=== PATIENT | female | born 1935 | race Caucasian/White ===

== ENCOUNTER → 2016-03-27 | Outpatient (CLI) | payer MEDICARE, OTHER ==
[~2016-03-27] MED LIST: AMARYL2 MG PO; APRESOLINE PO; ASPIRIN ADULT L81 MG; ASPIRIN81 M1 PO; AVANDARYL 4 MG-1 TAB; AVANDARYL 4 MG-1 TAB PO; BACTRIM DS 8001 TA1 PO; CALCIUM + D 6001 TA1; CALCIUM + D 6001 TAB PO; CARVEDILOL3.125 MG PO; CILOXAN 5 ML5 M1 OT; CLOPIDOGREL75 MG PO; COLACE100 MG PO; CORBAN MAGNESI400 MG PO; COREG CR20 MG; COREG CR20 MG PO; COZAAR25 MG; COZAAR25 MG PO; Clopidogrel75 MG PO; DILTIAZEM 24HR300 MG PO; DILTIAZEM CD300 MG; DILTIAZEM CD300 MG PO; DILTIAZEM HCL300 MG PO; ECOTRIN ADULT L81 MG PO; ESIDREX,ORETIC,25 MG; ESIDREX,ORETIC,25 MG PO; FLEXERIL5 MG PO; FUROSEMIDE20 MG PO; GABAPENTIN100 M1 PO; GABAPENTIN100 MG PO; GLIMEPIRIDE1 MG PO; HYDR25T PO; K-TAB10 MEQ PO; KEFLEX250 MG PO; LOSARTAN POTASS50 M1 PO; MAGNESIUM OXID400 MG PO; METANX 2.8 MG-21 TA1; METANX 2.8 MG-21 TA1 PO; METFORMIN HCL500 MG; METFORMIN HCL500 MG PO; METFORMIN500 MG PO; MICRO K10 MEQ PO; MICRO-K10 MEQ PO; NEURONTIN100 MG PO; NORCO 325 MG-51 TAB PO; NORVASC10 MG PO; OCUVITE1 TA1 PO; OMEPRAZOLE20 MG PO; OMEPRAZOLE40 MG PO; PANTOPRAZOLE SO40 MG PO; PLAVIX75 M1 PO; PLAVIX75 MG PO; POTASSIUM CHLO10 ME1 PO; POTASSIUM20 MEQ; POTASSIUM20 MEQ PO; PREDNISONE10 MG PO; PRESERVISION1 SGL PO; PRILOSEC40 M1 PO; PRILOSEC40 MG PO; PROTONIX40 MG PO; QVAR 40MCG7.3 G1 INH; QVAR0.08 MG/AC INH; QVAR40 MCG INH; SIMVASTATIN20 MG PO; VIBRAMYCIN100 MG PO; VICODIN 5/500 505 MG PO; VICODIN 500 MG-1 TAB PO; VITAMIN D1000 IU PO; VITAMIN D2000 IU PO; ZANTAC 150150 MG PO; ZOFRAN ODT4 MG SL; ZOFRAN ODT8 MG PO; [UNRECOGNIZED DRUG - OTHER] PO
[2016-03-27 09:52] LABS: HEMATOCRIT 36.7 % (37.0-47.0); HEMOGLOBIN 11.9 g/dl (12.0-16.0); MEAN CELL VOLUME 87.6 fl (81.0-99.0); MEAN CORPUSCULAR HGB 28.4 pg (27.0-31.0); MEAN CORPUSCULAR HGB CONC 32.4 g/dl (33.0-37.0); MEAN PLATELET VOLUME 10.3 fl (9.6-12.3); RED BLOOD COUNT 4.19 10*6/uL (4.10-5.10); RED CELL DISTRI WIDTH 12.8 % (0-14.5); WHITE BLOOD COUNT 7.2 10*3/uL (4.8-10.8)
[2016-03-27 10:13] LABS: ALBUMIN 3.6 gm/dl (3.1-4.5); BILIRUBIN, TOTAL 0.4 mg/dl (0.2-1.0); TOTAL PROTEIN 6.9 gm/dL (6.4-8.2)
[2016-03-27 10:13] LABS: CHOLESTEROL 215 mg/dL (<200); HDL CHOLESTEROL 54 mg/dl (40-60); LDL CHOLESTEROL 128 mg/dL (9-159); TRIGLYCERIDES 164 mg/dl (<150); VLDL CHOLESTEROL 33 mg/dL (6-40)
[2016-03-27 10:24] LABS: HEMOGLOBIN A1c 7.6 % (4.8-5.6)
== END | disposition home or self-care (01) ==
LOC: LAB 09:11
PROVIDERS: Family Medicine
DX: E11.9 Type 2 diabetes mellitus without complications (principal); E78.00 Pure hypercholesterolemia, unspecified; I10 Essential (primary) hypertension

== ENCOUNTER → 2016-06-27 | Outpatient (CLI) | payer MEDICARE, OTHER ==
[2016-06-27 09:24] LABS: HEMATOCRIT 34.2 % (37.0-47.0); HEMOGLOBIN 11.3 g/dl (12.0-16.0); MEAN CELL VOLUME 87.7 fl (81.0-99.0); MEAN PLATELET VOLUME 9.7 fl (9.6-12.3); RED BLOOD COUNT 3.9 10*6/uL (4.10-5.10); RED CELL DISTRI WIDTH 13.3 % (0-14.5); WHITE BLOOD COUNT 7.1 10*3/uL (4.8-10.8)
[2016-06-27 09:53] LABS: ALBUMIN 3.7 gm/dl (3.1-4.5); BILIRUBIN, TOTAL 0.4 mg/dl (0.2-1.0); POTASSIUM 4.6 mmol/L (3.5-5.1); TOTAL PROTEIN 7.3 gm/dL (6.4-8.2)
[2016-06-27 10:01] LABS: HEMOGLOBIN A1c 7.7 % (4.8-5.6)
== END | disposition home or self-care (01) ==
LOC: LAB 09:03
PROVIDERS: Family Medicine
DX: E11.9 Type 2 diabetes mellitus without complications (principal); I10 Essential (primary) hypertension; E78.00 Pure hypercholesterolemia, unspecified

== ENCOUNTER → 2016-09-21 | Outpatient (CLI) | payer MEDICARE, OTHER ==
[2016-09-21 10:37] LABS: POTASSIUM 3.8 mmol/L (3.5-5.1)
[2016-09-21 10:43] LABS: ALBUMIN 3.6 gm/dl (3.1-4.5); BILIRUBIN, TOTAL 0.4 mg/dl (0.2-1.0)
[2016-09-21 10:47] LABS: HEMOGLOBIN A1c 8.2 % (4.8-5.6)
== END | disposition home or self-care (01) ==
LOC: LAB 09:33
PROVIDERS: Family Medicine
DX: I10 Essential (primary) hypertension (principal); E11.9 Type 2 diabetes mellitus without complications; E78.00 Pure hypercholesterolemia, unspecified

== ENCOUNTER → 2016-12-03 | Outpatient (CLI) | payer MEDICARE, OTHER ==
[2016-12-03 11:55] LABS: FREE T4 0.92 ng/dl (0.76-1.46); THYROID STIM HORMONE (HS) 2.12 uIU/ml (0.358-4.75)
== END | disposition home or self-care (01) ==
LOC: LAB 10:45
PROVIDERS: Family Medicine
DX: R53.83 Other fatigue (principal); R63.5 Abnormal weight gain

== ENCOUNTER → 2017-02-26 | Outpatient (CLI) | payer MEDICARE, OTHER ==
[2017-02-26 10:05] LABS: ALBUMIN 3.6 gm/dl (3.1-4.5); CREATININE 1.24 mg/dL (0.55-1.02); POTASSIUM 4.1 mmol/L (3.5-5.1)
[2017-02-26 10:07] LABS: TOTAL PROTEIN 7.3 gm/dL (6.4-8.2)
== END | disposition home or self-care (01) ==
LOC: LAB 09:17
PROVIDERS: Family Medicine
DX: E78.00 Pure hypercholesterolemia, unspecified (principal); E11.9 Type 2 diabetes mellitus without complications

== ENCOUNTER 2017-04-23 11:06 | Emergency (ER) | payer MEDICARE, OTHER ==
[~2017-04-23] VITALS: Ht 154.9 cm; Wt 90.7 kg
[2017-04-23 12:50] LABS: BASO # 0.1 10*3/uL (0.0-0.1); BASO % 0.7 % (0.0-1.0); EOS % 0.6 % (1.0-4.0); HEMATOCRIT 35.1 % (37.0-47.0); HEMOGLOBIN 11.4 g/dl (12.0-16.0); LYMPH # 1.9 10*3/uL (1.3-4.4); MEAN CELL VOLUME 87.8 fl (81.0-99.0); MEAN CORPUSCULAR HGB 28.5 pg (27.0-31.0); MEAN CORPUSCULAR HGB CONC 32.5 g/dl (33.0-37.0); MEAN PLATELET VOLUME 9.4 fl (9.6-12.3); MONO # 0.4 10*3/uL (0.1-1.0); NEUT # 4.4 10*3/uL (2.3-7.9); NEUT % 64.4 % (47.0-73.0); PLATELET COUNT AUTOMATED 198 10*3/uL (130-400); RED CELL DISTRI WIDTH 13.2 % (0-14.5); WHITE BLOOD COUNT 6.8 10*3/uL (4.8-10.8)
[2017-04-23 13:10] LABS: ALBUMIN 3.6 gm/dl (3.1-4.5); CREATININE 1.13 mg/dL (0.55-1.02); POTASSIUM 4.3 mmol/L (3.5-5.1)
[2017-04-23 13:23] LABS: TOTAL PROTEIN 7.4 gm/dL (6.4-8.2)
[2017-04-23 14:14] VITALS: BP 150/66
== END 2017-04-23 17:17 | disposition home or self-care (01) ==
LOC: ED 11:06
PROVIDERS: Emergency Medicine
DX: R20.0 Anesthesia of skin (principal); E11.22 Type 2 diabetes mellitus with diabetic chronic kidney disease; N18.3 Chronic kidney disease, stage 3 (moderate); Z91.040 Latex allergy status; Z79.899 Other long term (current) drug therapy; Z79.82 Long term (current) use of aspirin

== ENCOUNTER → 2017-05-22 | Outpatient (CLI) | payer MEDICARE, OTHER | END | disposition home or self-care (01) | LOC: LAB 11:04 | PROVIDERS: Psychiatry & Neurology Neurology | DX: R20.0 Anesthesia of skin (principal); R29.818 Other symptoms and signs involving the nervous system ==

== ENCOUNTER → 2017-06-03 | Outpatient (CLI) | payer MEDICARE, OTHER | END | disposition home or self-care (01) | LOC: MRI 12:55 | DX: I25.10 Atherosclerotic heart disease of native coronary artery without angina pectoris (principal); I10 Essential (primary) hypertension; R29.818 Other symptoms and signs involving the nervous system ==

== ENCOUNTER → 2017-06-10 | Outpatient (CLI) | payer MEDICARE, OTHER ==
[2017-06-10 09:53] LABS: ALBUMIN 3.5 gm/dl (3.1-4.5); CREATININE 1.23 mg/dL (0.55-1.02); POTASSIUM 4.6 mmol/L (3.5-5.1)
[2017-06-10 09:54] LABS: TOTAL PROTEIN 7.2 gm/dL (6.4-8.2)
== END | disposition home or self-care (01) ==
LOC: LAB 08:46
PROVIDERS: Family Medicine
DX: E78.00 Pure hypercholesterolemia, unspecified (principal); I10 Essential (primary) hypertension; E11.9 Type 2 diabetes mellitus without complications

== ENCOUNTER → 2017-06-14 | Outpatient (CLI) | payer MEDICARE, OTHER | END | disposition home or self-care (01) | LOC: MRI 13:26 | DX: R29.818 Other symptoms and signs involving the nervous system (principal); R20.0 Anesthesia of skin; I10 Essential (primary) hypertension ==

== ENCOUNTER → 2017-06-24 | Outpatient (CLI) | payer MEDICARE, OTHER ==
[2017-06-24 12:02] LABS: CREATININE 1.2 mg/dL (0.55-1.02); FREE T4 0.83 ng/dl (0.76-1.46)
[2017-06-24 12:07] LABS: THYROID STIM HORMONE (HS) 1.53 uIU/ml (0.358-4.75)
[2017-06-25 06:09] LABS: FOLLICLE STIMULATING HORMONE 26.7 mIU/mL (.); LUTEINIZING HORMONE 004283 9.5 mIU/mL (.); PROLACTIN 004465 14.9 ng/mL (4.8-23.3)
== END | disposition home or self-care (01) ==
LOC: LAB 11:07
PROVIDERS: Psychiatry & Neurology Neurology
DX: E23.6 Other disorders of pituitary gland (principal)

== ENCOUNTER → 2017-06-26 | Outpatient (CLI) | payer MEDICARE, OTHER ==
[2017-06-29 05:03] LABS: CORTISOL, FREE URINE 7 ug/L (Undefined); CORTISOL, FREE, UG/24HR, URINE 5 ug/24 hr (0-50)
== END | disposition home or self-care (01) ==
LOC: LAB 08:43
PROVIDERS: Psychiatry & Neurology Neurology
DX: E23.6 Other disorders of pituitary gland (principal)

== ENCOUNTER → 2017-07-10 | Outpatient (CLI) | payer MEDICARE, OTHER | END | disposition home or self-care (01) | LOC: MRI 12:22 | DX: E23.6 Other disorders of pituitary gland (principal); R20.0 Anesthesia of skin ==

== ENCOUNTER → 2017-08-02 | Outpatient (CLI) | payer MEDICARE, OTHER ==
--- NOTE | ~2017-08-02 | EEG ---
[place], [place] ELECTROENCEPHALOGRAM REPORT NAME: [facility]BY [id number] UNIT #: [id number] ROOM: DOCTOR: TAY ECHEVERRIA MD, JR DOS: 08/02/2017 This 81-year-old woman on Plavix, aspirin, glyburide, hydrochlorothiazide and enalapril. Despite the following underlying rhythms -- fairly well organized, synchronous, 9 Hz, 30-40 microvolt alpha rhythm in both posterior regions. 18 Hz, 10 microvolt beta rhythms are noted in both the precentral regions. There was symmetrical attenuation of the posterior alpha rhythm with eye opening. Hyperventilation was performed without changes in the above underlying rhythms. There is minimal driving to photic stimulation without abnormalities. The patient did become drowsy, progressing to stage I of somnolence. Throughout this recording, there were no focal abnormalities or epileptiform discharges. IMPRESSION: Normal awake and drowsy EEG. Clinical correlation is highly advised. TAY ECHEVERRIA MD CM:EEG:ELECTROENCEPHALOGRAM REPORT [id number] TAY ECHEVERRIA MD, JR
== END | disposition home or self-care (01) ==
LOC: CP 09:35
DX: R29.818 Other symptoms and signs involving the nervous system (principal)

== ENCOUNTER → 2017-12-23 | Outpatient (CLI) | payer MEDICARE, OTHER ==
[2017-12-23 10:18] LABS: HEMATOCRIT 34.5 % (37.0-47.0); HEMOGLOBIN 11.2 g/dl (12.0-16.0); MEAN CELL VOLUME 89.6 fl (81.0-99.0); MEAN CORPUSCULAR HGB 29.1 pg (27.0-31.0); MEAN CORPUSCULAR HGB CONC 32.5 g/dl (33.0-37.0); MEAN PLATELET VOLUME 10.2 fl (9.6-12.3); RED BLOOD COUNT 3.85 10*6/uL (4.10-5.10); WHITE BLOOD COUNT 5.8 10*3/uL (4.8-10.8)
[2017-12-23 10:43] LABS: POTASSIUM 4.2 mmol/L (3.5-5.1)
[2017-12-23 10:53] LABS: ALBUMIN 3.5 gm/dl (3.1-4.5); CREATININE 1.12 mg/dL (0.55-1.02); TOTAL PROTEIN 7.5 gm/dL (6.4-8.2)
== END | disposition home or self-care (01) ==
LOC: LAB 09:29
PROVIDERS: Family Medicine
DX: I10 Essential (primary) hypertension (principal); E11.9 Type 2 diabetes mellitus without complications; E55.9 Vitamin D deficiency, unspecified; E78.00 Pure hypercholesterolemia, unspecified

== ENCOUNTER → 2018-03-31 | Outpatient (CLI) | payer MEDICARE, OTHER ==
[2018-03-31 09:58] LABS: HEMATOCRIT 35.3 % (37.0-47.0); MEAN CELL VOLUME 89.4 fl (81.0-99.0); MEAN CORPUSCULAR HGB 27.8 pg (27.0-31.0); MEAN CORPUSCULAR HGB CONC 31.2 g/dl (33.0-37.0); MEAN PLATELET VOLUME 10.1 fl (9.6-12.3); RED BLOOD COUNT 3.95 10*6/uL (4.10-5.10); RED CELL DISTRI WIDTH 13.2 % (0-14.5); WHITE BLOOD COUNT 6.3 10*3/uL (4.8-10.8)
[2018-03-31 10:31] LABS: ALBUMIN 3.3 gm/dl (3.1-4.5); CREATININE 1.12 mg/dL (0.55-1.02); POTASSIUM 4.5 mmol/L (3.5-5.1)
[2018-03-31 10:33] LABS: TOTAL PROTEIN 7.1 gm/dL (6.4-8.2)
== END | disposition home or self-care (01) ==
LOC: LAB 09:21
PROVIDERS: Family Medicine
DX: I10 Essential (primary) hypertension (principal); E11.9 Type 2 diabetes mellitus without complications; E78.00 Pure hypercholesterolemia, unspecified

== ENCOUNTER → 2018-06-30 | Outpatient (CLI) | payer MEDICARE, OTHER ==
[2018-06-30 10:06] LABS: HEMATOCRIT 34.4 % (37.0-47.0); MEAN CELL VOLUME 88.9 fl (81.0-99.0); MEAN CORPUSCULAR HGB 28.4 pg (27.0-31.0); MEAN PLATELET VOLUME 9.8 fl (9.6-12.3); RED BLOOD COUNT 3.87 10*6/uL (4.10-5.10); RED CELL DISTRI WIDTH 13.3 % (0-14.5); WHITE BLOOD COUNT 6.6 10*3/uL (4.8-10.8)
[2018-06-30 10:41] LABS: ALBUMIN 3.4 gm/dl (3.1-4.5); CREATININE 1.18 mg/dL (0.55-1.02); POTASSIUM 4.2 mmol/L (3.5-5.1); TOTAL PROTEIN 7.3 gm/dL (6.4-8.2)
== END | disposition home or self-care (01) ==
LOC: LAB 09:42
PROVIDERS: Family Medicine
DX: E11.9 Type 2 diabetes mellitus without complications (principal); E78.00 Pure hypercholesterolemia, unspecified; E55.9 Vitamin D deficiency, unspecified; M19.90 Unspecified osteoarthritis, unspecified site

== ENCOUNTER → 2019-01-02 | Outpatient (CLI) | payer MEDICARE, OTHER ==
[2019-01-02 09:30] LABS: HEMATOCRIT 34.8 % (37.0-47.0); HEMOGLOBIN 11.1 g/dl (12.0-16.0); MEAN CELL VOLUME 90.4 fl (81.0-99.0); MEAN CORPUSCULAR HGB 28.8 pg (27.0-31.0); MEAN CORPUSCULAR HGB CONC 31.9 g/dl (33.0-37.0); MEAN PLATELET VOLUME 9.7 fl (9.6-12.3); RED BLOOD COUNT 3.85 10*6/uL (4.10-5.10); RED CELL DISTRI WIDTH 13.5 % (0-14.5); WHITE BLOOD COUNT 6.5 10*3/uL (4.8-10.8)
[2019-01-02 09:45] LABS: ALBUMIN 3.6 gm/dl (3.1-4.5); CREATININE 1.2 mg/dL (0.55-1.02); TOTAL PROTEIN 7.3 gm/dL (6.4-8.2)
== END | disposition home or self-care (01) ==
LOC: LAB 09:09
PROVIDERS: Family Medicine
DX: E78.00 Pure hypercholesterolemia, unspecified (principal); E11.9 Type 2 diabetes mellitus without complications; I10 Essential (primary) hypertension

== ENCOUNTER 2019-01-21 19:51 | Emergency (ER) | payer MEDICARE, OTHER ==
[~2019-01-21] VITALS: Ht 154.9 cm; Wt 90.7 kg
[2019-01-21 20:18] LABS: BASO # 0.1 10*3/uL (0.0-0.1); BASO % 0.7 % (0.0-1.0); EOS # 0.1 10*3/uL (0.0-0.4); EOS % 0.9 % (1.0-4.0); HEMATOCRIT 34.9 % (37.0-47.0); HEMOGLOBIN 11.1 g/dl (12.0-16.0); LYMPH # 1.8 10*3/uL (1.3-4.4); LYMPH % 21.7 % (27.0-41.0); MEAN CELL VOLUME 88.8 fl (81.0-99.0); MEAN CORPUSCULAR HGB 28.2 pg (27.0-31.0); MEAN CORPUSCULAR HGB CONC 31.8 g/dl (33.0-37.0); MONO # 0.6 10*3/uL (0.1-1.0); MONO % 6.9 % (3.0-9.0); NEUT # 5.9 10*3/uL (2.3-7.9); NEUT % 69.6 % (47.0-73.0); PLATELET COUNT AUTOMATED 220 10*3/uL (130-400); RED BLOOD COUNT 3.93 10*6/uL (4.10-5.10); RED CELL DISTRI WIDTH 13.2 % (0-14.5); WHITE BLOOD COUNT 8.5 10*3/uL (4.8-10.8)
[2019-01-21 20:32] LABS: ACT PARTIAL THROMBO TIME 26.5 SECONDS (20.0-32.1)
[2019-01-21 20:34] LABS: ALBUMIN 3.6 gm/dl (3.1-4.5); CREATININE 1.38 mg/dL (0.55-1.02); POTASSIUM 4.3 mmol/L (3.5-5.1); TOTAL PROTEIN 7.5 gm/dL (6.4-8.2)
[2019-01-21 20:38] LABS: TROPONIN I 2.6 ng/ml (<0.045)
[2019-01-21 22:31] VITALS: BP 156/66
== END 2019-01-21 22:30 | disposition short-term general hospital (02) ==
LOC: ED 19:51
PROVIDERS: Emergency Medicine
DX: I21.4 Non-ST elevation (NSTEMI) myocardial infarction (principal); I25.10 Atherosclerotic heart disease of native coronary artery without angina pectoris; E11.22 Type 2 diabetes mellitus with diabetic chronic kidney disease; N18.3 Chronic kidney disease, stage 3 (moderate); Z91.048 Other nonmedicinal substance allergy status; Z91.040 Latex allergy status; Z79.899 Other long term (current) drug therapy; Z79.82 Long term (current) use of aspirin; Z79.2 Long term (current) use of antibiotics; Z90.710 Acquired absence of both cervix and uterus; Z90.49 Acquired absence of other specified parts of digestive tract

== ENCOUNTER → 2019-04-07 | Outpatient (CLI) | payer MEDICARE, OTHER ==
[2019-04-07 10:21] LABS: HEMATOCRIT 33.4 % (37.0-47.0); HEMOGLOBIN 10.5 g/dl (12.0-16.0); MEAN CELL VOLUME 89.5 fl (81.0-99.0); MEAN CORPUSCULAR HGB 28.2 pg (27.0-31.0); MEAN CORPUSCULAR HGB CONC 31.4 g/dl (33.0-37.0); RED BLOOD COUNT 3.73 10*6/uL (4.10-5.10); RED CELL DISTRI WIDTH 12.8 % (0-14.5); WHITE BLOOD COUNT 7.4 10*3/uL (4.8-10.8)
[2019-04-07 10:55] LABS: ALBUMIN 3.2 gm/dl (3.1-4.5); CREATININE 1.12 mg/dL (0.55-1.02); POTASSIUM 4.4 mmol/L (3.5-5.1); TOTAL PROTEIN 7.1 gm/dL (6.4-8.2)
== END | disposition home or self-care (01) ==
LOC: LAB 09:28
PROVIDERS: Family Medicine
DX: E11.9 Type 2 diabetes mellitus without complications (principal); E55.9 Vitamin D deficiency, unspecified; I10 Essential (primary) hypertension; E78.00 Pure hypercholesterolemia, unspecified

== ENCOUNTER → 2019-04-09 | Outpatient (CLI) | payer MEDICARE, OTHER ==
[~2019-04-09] MED LIST changes: +AMARYL4 MG PO; +COREG6.25 MG PO; +ENALAPRIL10 MG PO; +Lopressor25 MG PO; +MACROBID100 M1 PO; +POTASSIUM CHLO20 ME3 PO
== END | disposition home or self-care (01) ==
LOC: LAB 13:10
DX: D35.2 Benign neoplasm of pituitary gland (principal)

== ENCOUNTER 2019-05-04 12:11 | Inpatient (IN) | payer MEDICARE, OTHER ==
[~2019-05-04] VITALS: Ht 154.9 cm; Wt 88.1 kg
[2019-05-04] VITALS (7 sets, daily range): BP systolic 153–205; BP diastolic 46–78
[~2019-05-04 12:11] MED LIST changes: -AMARYL4 MG PO; -COREG6.25 MG PO; -ENALAPRIL10 MG PO; -Lopressor25 MG PO; -MACROBID100 M1 PO; -POTASSIUM CHLO20 ME3 PO
[2019-05-04 12:58] LABS: BACTERIA 1+; BILIRUBIN NEGATIVE (NEGATIVE); BLOOD NEGATIVE (NEGATIVE); CLARITY SL CLOUDY (CLEAR); COLOR YELLOW (YELLOW); GLUCOSE NEGATIVE (NEGATIVE); KETONE NEGATIVE (NEGATIVE); LEUKO ESTERASE 1+ (NEGATIVE); NITRITE NEGATIVE (NEGATIVE); UROBILINOGEN 0.2 E.U./dl (0.2-1.0)
[2019-05-04 13:25] LABS: BASO # 0.1 10*3/uL (0.0-0.1); EOS # 0.2 10*3/uL (0.0-0.4); EOS % 2.2 % (1.0-4.0); HEMATOCRIT 33.5 % (37.0-47.0); HEMOGLOBIN 10.6 g/dl (12.0-16.0); LYMPH # 1.5 10*3/uL (1.3-4.4); LYMPH % 21.6 % (27.0-41.0); MEAN CELL VOLUME 89.3 fl (81.0-99.0); MEAN CORPUSCULAR HGB 28.3 pg (27.0-31.0); MEAN CORPUSCULAR HGB CONC 31.6 g/dl (33.0-37.0); MEAN PLATELET VOLUME 9.7 fl (9.6-12.3); MONO # 0.5 10*3/uL (0.1-1.0); NEUT # 4.9 10*3/uL (2.3-7.9); NEUT % 68.1 % (47.0-73.0); PLATELET COUNT AUTOMATED 222 10*3/uL (130-400); RED BLOOD COUNT 3.75 10*6/uL (4.10-5.10); WHITE BLOOD COUNT 7.1 10*3/uL (4.8-10.8)
[2019-05-04 13:33] LABS: ACT PARTIAL THROMBO TIME 26.2 SECONDS (20.0-32.1)
[2019-05-04 13:39] LABS: ALBUMIN 3.5 gm/dl (3.1-4.5); ALKALINE PHOSPHATASE 46 U/L (45-117); BUN 19 mg/dl (7-24); CHLORIDE 104 mmol/L (98-107); CREATININE 1.15 mg/dL (0.55-1.02); LIPASE 168 U/L (73-393); POTASSIUM 4.4 mmol/L (3.5-5.1); SGOT/AST 10 IU/L (3-35); SGPT/ALT 16 U/L (12-78); SODIUM 137 mmol/L (136-145); TOTAL PROTEIN 7.2 gm/dL (6.4-8.2)
[2019-05-04 13:42] LABS: TROPONIN I < 0.015 ng/ml (<0.045)
[2019-05-04] MEDS ORDERED: MACROBID100 M1 PO (15:40)
[2019-05-04] MEDS ORDERED: ENALAPRIL10 MG PO (15:42)
[2019-05-04] MEDS ORDERED: AMARYL4 MG PO (15:43)
[2019-05-04] MEDS ORDERED: Lopressor25 MG PO (15:44)
[2019-05-04] MEDS ORDERED: COREG6.25 MG PO (15:45)
[2019-05-04] MEDS ORDERED: POTASSIUM CHLO20 ME3 PO (15:47)
--- NOTE | 2019-05-04 16:20 | NUR ---
A 83, admitted to , under the services of Dr. MARIA ELENA OCAMPO,DOM Argueta with a diagnosis of HYPERTENSIVE EMERGENCY. Chief complaint is BLURRY VISION. Patient arrived via wheel chair from ER. Monitor applied. Initial assessment completed. Vital signs taken and recorded. DR. MARIA ELENA OCAMPO,DOM Argueta notified of admission to the unit. Orders received. See assessment for past medical history, medications and allergies. Patient and/or family oriented to unit. [address] visitation policy reviewed. Clothing/patient valuable form completed. FAISAL COOL
--- NOTE | 2019-05-04 19:55 | NUR ---
PT MEDICATED WITH TYLENOL FOR C/O HEADACHE. BP CURRENTLY 153/46 & HR 71. PO COREG ADMINISTERED AT THIS TIME. WILL MONITOR EFFECTIVENESS. CALL LIGHT IN REACH.
--- NOTE | 2019-05-04 21:24 | NUR ---
NOTIFIED OF PT C/O HEADACHE FOLLOWING PO TYLENOL ADMINISTRATION. NEW ORDER RECEIVED FOR 0.5MG IV DILAUDID X1 DOSE NOW.
--- NOTE | 2019-05-04 21:37 | NUR ---
PT MEDICATED WITH ONE TIME DOSE OF DILAUDID PER ORDER. PT RATING HEADACHE 10/10. WILL MONITOR EFFECTIVENESS. BED ALARM APPLIED. CALL LIGHT IN REACH.
--- NOTE | 2019-05-04 23:05 | NUR ---
NOTIFIED OF PT'S CONTINUED C/O HEADACHE AND STATING PAIN IS BEHIND HER EYES. PT NOW ALSO NAUSEOUS AND DRY HEAVING. PER , PROBABLY A MIGRAINE HEADACHE. NEW ORDER RECEIVED FOR 1X DOSE OF PO MOTRIN 800 MG TO BE GIVEN WITH 1X DOSE OF PO TYLENOL 1,000 MG NOW. ALSO INSTRUCTED TO ORDER IV ZOFRAN 8 MG Q6H PRN.
--- NOTE | 2019-05-04 23:15 | NUR ---
IV ZOFRAN, PO TYLENOL, AND PO MOTRIN GIVEN FOR C/O HEADACHE AND NAUSEA. WILL MONITOR.
[2019-05-05 00:50] VITALS: BP 182/64
--- NOTE | 2019-05-05 00:53 | NUR ---
NOTIFIED OF BP 182/64 MANUALLY AND HEADACHE STILL THERE. PT STATES SHE RATES HEADACHE ABOUT A 6/10. CONTINUE TO MONITOR PER . NO NEW ORDERS RECEIVED.
[2019-05-05 05:56] LABS: CREATININE 1.55 mg/dL (0.55-1.02); POTASSIUM 4.7 mmol/L (3.5-5.1)
[2019-05-05 08:00] VITALS: BP 148/58
--- NOTE | 2019-05-05 10:30 | NUR ---
[employer] in to talk to patient. Patient states lives at home with her (her is currently in [facility]) and her soon and daughter checking in on her. There are 8 steps in the home. Physician: Dr. Isrrael Esparza Pharmacy: [facility] Home health services: [facility] on discharge Patient's level of ADLs: INDEPENDENT Patient has working utilities: yes DME: none Follow-up physician's appointment after d/c: she prefers to make her own follow up appt after discharge Does patient want to access PORTAL?: no Discharge plan discussed with patient. She lives at home with her and her children checking in on her. She is currently in [facility] for rehab. She is independent in her ADLs and ambulation. Discussed short term SNF and she refuses. Discussed home health care services and she is agreeable. When provided with a list of agencies she chose [facility]. When medically stable she will be discharged to home with [facility] services. She states either her son or her daughter will provide transportation on discharge. RAY CRENSHAW
[2019-05-05 12:00] VITALS: BP 151/52
[2019-05-05 16:00] VITALS: BP 140/50
[2019-05-05 20:00] VITALS: BP 155/44
[2019-05-06 08:00] VITALS: BP 164/58
--- NOTE | 2019-05-06 08:15 | NUR ---
PHYSICAL THERAPY Screen received pt admitted from home with hypertensive crisis, please consult PT if pt's functional status declines below basline thank you Charisma Del Toro PT
--- NOTE | 2019-05-06 11:39 | NUR ---
Wharf Tender Helper in to see patient. Discussed short term SNF and she refuses. She states Dr. Bartholomew wants her to go but she wants to go home with home health care services. Asked if she thought she was safe to return home and she stated yes. Notified nurse and Dr. Bartholomew.
[2019-05-06 12:00] VITALS: BP 162/55
--- NOTE | 2019-05-06 14:30 | NUR ---
DR GRANADOS CALLED RE: PT REQUESTED DISCHARGED HOME. ORDERS RECEIVED.
--- NOTE | 2019-05-06 14:31 | NUR ---
Faxed new home health order to [facility]
--- NOTE | 2019-05-06 15:43 | NUR ---
Discharge instructions reviewed with patient/family. Patient receptive and verbalizes understanding. Follow-up care arranged. Written instructions given to patient/family. JAIMIE AMARO
== END 2019-05-06 15:43 | disposition home or self-care (01) | DRG 305 ==
LOC: ED 12:11 → EDHOLD 15:08 → 4E 15:08
PROVIDERS: Emergency Medicine; ADMIT Internal Medicine
DX: I16.1 Hypertensive emergency (principal); R62.7 Adult failure to thrive; N18.3 Chronic kidney disease, stage 3 (moderate); I12.9 Hypertensive chronic kidney disease with stage 1 through stage 4 chronic kidney disease, or unspecified chronic kidney disease; E11.22 Type 2 diabetes mellitus with diabetic chronic kidney disease; K21.0 Gastro-esophageal reflux disease with esophagitis; Z91.040 Latex allergy status; Z91.09 Other allergy status, other than to drugs and biological substances; I25.2 Old myocardial infarction; Z87.440 Personal history of urinary (tract) infections; Z90.49 Acquired absence of other specified parts of digestive tract; Z90.710 Acquired absence of both cervix and uterus; Z98.42 Cataract extraction status, left eye; Z98.41 Cataract extraction status, right eye; Z80.8 Family history of malignant neoplasm of other organs or systems; Z84.89 Family history of other specified conditions; Z68.36 Body mass index [BMI] 36.0-36.9, adult

== ENCOUNTER → 2019-05-18 | Outpatient (CLI) | payer MEDICARE, OTHER ==
[~2019-05-18] MED LIST changes: +AMARYL4 MG PO; +COREG6.25 MG PO; +ENALAPRIL10 MG PO; +Lopressor25 MG PO; +MACROBID100 M1 PO; +POTASSIUM CHLO20 ME3 PO
== END | disposition home or self-care (01) ==
LOC: MRI 05-15 13:00
DX: D35.2 Benign neoplasm of pituitary gland (principal); I10 Essential (primary) hypertension

== ENCOUNTER → 2019-06-10 | Outpatient (CLI) | payer MEDICARE, OTHER | END | disposition home or self-care (01) | LOC: US 10:51 | DX: N17.9 Acute kidney failure, unspecified (principal) ==

== ENCOUNTER → 2019-08-18 | Outpatient (CLI) | payer MEDICARE, OTHER | END | disposition home or self-care (01) | LOC: US 13:16 | DX: N13.30 Unspecified hydronephrosis (principal); Z90.710 Acquired absence of both cervix and uterus ==

== ENCOUNTER → 2019-08-28 | Outpatient (CLI) | payer MEDICARE, OTHER | END | disposition home or self-care (01) | LOC: US 12:30 | DX: N13.2 Hydronephrosis with renal and ureteral calculous obstruction (principal) ==

== ENCOUNTER → 2019-11-02 | Outpatient (CLI) | payer MEDICARE, OTHER ==
[2019-11-02 09:28] LABS: HEMATOCRIT 33.8 % (37.0-47.0); MEAN CELL VOLUME 89.2 fl (81.0-99.0); MEAN CORPUSCULAR HGB 28.2 pg (27.0-31.0); MEAN CORPUSCULAR HGB CONC 31.7 g/dl (33.0-37.0); MEAN PLATELET VOLUME 9.9 fl (9.6-12.3); RED BLOOD COUNT 3.79 10*6/uL (4.10-5.10); RED CELL DISTRI WIDTH 13.1 % (0-14.5); WHITE BLOOD COUNT 6.7 10*3/uL (4.8-10.8)
[2019-11-02 10:13] LABS: ALBUMIN 3.4 gm/dl (3.1-4.5); CREATININE 1.14 mg/dL (0.55-1.02); POTASSIUM 4.1 mmol/L (3.5-5.1); TOTAL PROTEIN 7.3 gm/dL (6.4-8.2)
== END | disposition home or self-care (01) ==
LOC: LAB 09:08
PROVIDERS: Family Medicine
DX: R53.83 Other fatigue (principal); E55.9 Vitamin D deficiency, unspecified; Z79.899 Other long term (current) drug therapy

== ENCOUNTER 2020-01-30 13:30 | Emergency (ER) | payer MEDICARE, OTHER ==
[~2020-01-30] VITALS: Ht 154.9 cm; Wt 81.6 kg
[2020-01-30 13:53] VITALS: BP 190/70
== END 2020-01-30 14:35 | disposition home or self-care (01) ==
LOC: ED 13:30
DX: I10 Essential (primary) hypertension (principal); Z91.040 Latex allergy status; Z79.899 Other long term (current) drug therapy

== ENCOUNTER 2020-02-02 01:32 | Emergency (ER) | payer MEDICARE, OTHER ==
[~2020-02-02] VITALS: Ht 154.9 cm; Wt 83.9 kg
[2020-02-02 03:01] LABS: BILIRUBIN Negative (Negative); BLOOD Negative (Negative); CLARITY Clear (Clear); COLOR Yellow (Yellow); GLUCOSE Negative (Negative); KETONE Negative (Negative); LEUKO ESTERASE Trace (Negative); NITRITE Negative (Negative); UROBILINOGEN 0.2 E.U./dl (0.0-1.0)
[2020-02-02 03:05] LABS: BASO # 0.1 10*3/uL (0.0-0.1); BASO % 0.8 % (0.0-1.0); EOS # 0.2 10*3/uL (0.0-0.4); LYMPH # 1.9 10*3/uL (1.3-4.4); LYMPH % 25.9 % (27.0-41.0); MEAN CELL VOLUME 87.8 fl (81.0-99.0); MEAN CORPUSCULAR HGB 27.9 pg (27.0-31.0); MEAN CORPUSCULAR HGB CONC 31.8 g/dl (33.0-37.0); MEAN PLATELET VOLUME 9.1 fl (9.6-12.3); MONO # 0.6 10*3/uL (0.1-1.0); MONO % 7.5 % (3.0-9.0); NEUT # 4.7 10*3/uL (2.3-7.9); NEUT % 63.5 % (47.0-73.0); PLATELET COUNT AUTOMATED 206 10*3/uL (130-400); RED BLOOD COUNT 3.76 10*6/uL (4.10-5.10); RED CELL DISTRI WIDTH 14.3 % (0-14.5); WHITE BLOOD COUNT 7.5 10*3/uL (4.8-10.8)
[2020-02-02 03:22] LABS: ALBUMIN 3.6 gm/dl (3.1-4.5); ALKALINE PHOSPHATASE 44 U/L (45-117); BUN 22 mg/dl (7-24); CHLORIDE 105 mmol/L (98-107); CREATININE 1.11 mg/dL (0.55-1.02); POTASSIUM 3.8 mmol/L (3.5-5.1); SGOT/AST 9 IU/L (3-35); SGPT/ALT 14 U/L (12-78); SODIUM 141 mmol/L (136-145); TOTAL PROTEIN 7.3 gm/dL (6.4-8.2)
[2020-02-02 03:24] LABS: BACTERIA 1+
[2020-02-02 03:25] LABS: TROPONIN I < 0.015 ng/ml (<0.045)
[2020-02-02 04:25] VITALS: BP 146/48
== END 2020-02-02 04:45 | disposition home or self-care (01) ==
LOC: ED 01:32
PROVIDERS: Emergency Medicine
DX: I12.9 Hypertensive chronic kidney disease with stage 1 through stage 4 chronic kidney disease, or unspecified chronic kidney disease (principal); N18.30 Chronic kidney disease, stage 3 unspecified; E11.22 Type 2 diabetes mellitus with diabetic chronic kidney disease; I25.10 Atherosclerotic heart disease of native coronary artery without angina pectoris; E78.00 Pure hypercholesterolemia, unspecified; K21.9 Gastro-esophageal reflux disease without esophagitis; Z91.040 Latex allergy status; Z88.8 Allergy status to other drugs, medicaments and biological substances; Z79.899 Other long term (current) drug therapy; Z79.82 Long term (current) use of aspirin

== ENCOUNTER 2020-02-02 06:52 | Emergency (ER) | payer MEDICARE, OTHER ==
[~2020-02-02] VITALS: Ht 154.9 cm; Wt 83.9 kg
[2020-02-02 07:59] VITALS: BP 143/65
== END 2020-02-02 08:02 | disposition home or self-care (01) ==
LOC: ED 06:52
DX: I10 Essential (primary) hypertension (principal); Z91.040 Latex allergy status; Z79.899 Other long term (current) drug therapy; Z79.82 Long term (current) use of aspirin

== ENCOUNTER → 2020-02-10 | Outpatient (CLI) | payer MEDICARE, OTHER ==
--- NOTE | 2020-02-10 09:30 | NUR ---
INFORMED CONSENT OBTAINED FOR LEXISCAN NUCLEAR STRESS TEST WITH DR. BETTS. RESTING EKG SINUS BRADYCARDIA WITH A RESTING HR OF 56 WITH BP OF 140/62. LUNGS CLEAR WITH SPO2 OF 98% ON ROOM AIR. PT COMPLETED A 1:00 LEXISCAN PROTOCOL RECEIVING LEXISCAN 0.4 MG IV OVER 10 SECONDS. HAD NO EKG CHANGES. DID C/O "CHEST HEAVINESS" THAT SUBSIDED IN RECOVERY. HAD A PEAK HR OF 80 WITH BP OF 132/58. LAST RECOVERY HR OF 72 WITH BP OF 130/60. AWAITING SCANNING IN STABLE CONDITION.
== END | disposition home or self-care (01) ==
LOC: CARD 02-08 08:30
PROVIDERS: ATTEND Student in an Organized Health Care Education/Training Program
DX: I51.7 Cardiomegaly (principal); R53.81 Other malaise

== ENCOUNTER 2020-02-23 13:22 | Emergency (ER) | payer MEDICARE, OTHER ==
[~2020-02-23] VITALS: Ht 154.9 cm; Wt 86.2 kg
[2020-02-23 13:49] LABS: BASO # 0.1 10*3/uL (0.0-0.1); BASO % 0.8 % (0.0-1.0); EOS # 0.1 10*3/uL (0.0-0.4); EOS % 1.2 % (1.0-4.0); HEMATOCRIT 33.6 % (37.0-47.0); LYMPH # 2.1 10*3/uL (1.3-4.4); LYMPH % 27.8 % (27.0-41.0); MEAN CELL VOLUME 89.4 fl (81.0-99.0); MEAN CORPUSCULAR HGB 28.2 pg (27.0-31.0); MEAN CORPUSCULAR HGB CONC 31.5 g/dl (33.0-37.0); MEAN PLATELET VOLUME 9.7 fl (9.6-12.3); MONO # 0.5 10*3/uL (0.1-1.0); MONO % 6.3 % (3.0-9.0); NEUT # 4.8 10*3/uL (2.3-7.9); NEUT % 63.6 % (47.0-73.0); PLATELET COUNT AUTOMATED 201 10*3/uL (130-400); RED BLOOD COUNT 3.76 10*6/uL (4.10-5.10); RED CELL DISTRI WIDTH 13.6 % (0-14.5); WHITE BLOOD COUNT 7.5 10*3/uL (4.8-10.8)
[2020-02-23 13:59] LABS: ACT PARTIAL THROMBO TIME 26.8 SECONDS (20.0-32.1)
[2020-02-23 14:06] VITALS: BP 166/68
[2020-02-23 14:07] LABS: ALBUMIN 3.6 gm/dl (3.1-4.5); ALKALINE PHOSPHATASE 43 U/L (45-117); BUN 29 mg/dl (7-24); CHLORIDE 101 mmol/L (98-107); CREATININE 1.58 mg/dL (0.55-1.02); POTASSIUM 3.9 mmol/L (3.5-5.1); SGOT/AST 12 IU/L (3-35); SGPT/ALT 19 U/L (12-78); SODIUM 137 mmol/L (136-145); TOTAL PROTEIN 7.4 gm/dL (6.4-8.2)
[2020-02-23 14:08] LABS: TROPONIN I < 0.015 ng/ml (<0.045)
== END 2020-02-23 15:56 | disposition home or self-care (01) ==
LOC: ED 13:22
PROVIDERS: Nurse Practitioner Family
DX: K21.9 Gastro-esophageal reflux disease without esophagitis (principal); Z20.828 Contact with and (suspected) exposure to other viral communicable diseases; E11.9 Type 2 diabetes mellitus without complications; I10 Essential (primary) hypertension; E78.5 Hyperlipidemia, unspecified; I25.10 Atherosclerotic heart disease of native coronary artery without angina pectoris; J44.9 Chronic obstructive pulmonary disease, unspecified; E78.00 Pure hypercholesterolemia, unspecified; Z95.5 Presence of coronary angioplasty implant and graft; Z91.048 Other nonmedicinal substance allergy status; Z91.040 Latex allergy status; Z79.899 Other long term (current) drug therapy; Z79.82 Long term (current) use of aspirin; Z90.49 Acquired absence of other specified parts of digestive tract; Z90.710 Acquired absence of both cervix and uterus

== ENCOUNTER → 2020-03-02 | Outpatient (CLI) | payer MEDICARE, OTHER ==
[2020-03-02 09:45] LABS: MEAN CELL VOLUME 90.6 fl (81.0-99.0); MEAN CORPUSCULAR HGB 28.4 pg (27.0-31.0); MEAN CORPUSCULAR HGB CONC 31.3 g/dl (33.0-37.0); RED BLOOD COUNT 3.31 10*6/uL (4.10-5.10); RED CELL DISTRI WIDTH 13.6 % (0-14.5); WHITE BLOOD COUNT 7.6 10*3/uL (4.8-10.8)
[2020-03-02 10:16] LABS: ALBUMIN 3.2 gm/dl (3.1-4.5); CREATININE 1.58 mg/dL (0.55-1.02); POTASSIUM 4.6 mmol/L (3.5-5.1); TOTAL PROTEIN 6.8 gm/dL (6.4-8.2)
[2020-03-02 10:38] LABS: VITAMIN D, 25-HYDROXY 43.5 ng/mL (30-100)
== END | disposition home or self-care (01) ==
LOC: LAB 09:11
PROVIDERS: ATTEND Family Medicine
DX: E78.00 Pure hypercholesterolemia, unspecified (principal); E55.9 Vitamin D deficiency, unspecified; E11.9 Type 2 diabetes mellitus without complications; R53.83 Other fatigue

== ENCOUNTER → 2020-06-03 | Outpatient (CLI) | payer MEDICARE, OTHER ==
[2020-06-03 09:10] LABS: HEMATOCRIT 30.5 % (37.0-47.0); MEAN CELL VOLUME 89.4 fl (81.0-99.0); MEAN CORPUSCULAR HGB 28.2 pg (27.0-31.0); MEAN CORPUSCULAR HGB CONC 31.5 g/dl (33.0-37.0); MEAN PLATELET VOLUME 9.9 fl (9.6-12.3); RED BLOOD COUNT 3.41 10*6/uL (4.10-5.10); WHITE BLOOD COUNT 7.6 10*3/uL (4.8-10.8)
[2020-06-03 09:41] LABS: ALBUMIN 3.4 gm/dl (3.1-4.5); CREATININE 1.29 mg/dL (0.55-1.02); POTASSIUM 4.6 mmol/L (3.5-5.1); TOTAL PROTEIN 7.2 gm/dL (6.4-8.2)
== END | disposition home or self-care (01) ==
LOC: LAB 08:54
PROVIDERS: ATTEND Family Medicine
DX: I10 Essential (primary) hypertension (principal); E11.9 Type 2 diabetes mellitus without complications; E78.00 Pure hypercholesterolemia, unspecified

== ENCOUNTER 2020-06-23 21:52 | Emergency (ER) | payer MEDICARE, OTHER ==
[~2020-06-23] VITALS: Ht 162.5 cm; Wt 90.3 kg
[2020-06-23 23:19] VITALS: BP 156/60
== END 2020-06-24 00:05 | disposition home or self-care (01) ==
LOC: ED 21:52
DX: R10.9 Unspecified abdominal pain (principal); T37.8X5A Adverse effect of other specified systemic anti-infectives and antiparasitics, initial encounter; Z90.49 Acquired absence of other specified parts of digestive tract; Z98.890 Other specified postprocedural states; Z79.899 Other long term (current) drug therapy; Z79.82 Long term (current) use of aspirin; Z91.040 Latex allergy status; Y92.89 Other specified places as the place of occurrence of the external cause

== ENCOUNTER → 2020-08-19 | Outpatient (CLI) | payer MEDICARE, OTHER ==
[2020-08-19 09:30] LABS: HEMATOCRIT 29.7 % (37.0-47.0); MEAN CELL VOLUME 91.1 fl (81.0-99.0); MEAN CORPUSCULAR HGB 28.8 pg (27.0-31.0); MEAN CORPUSCULAR HGB CONC 31.6 g/dl (33.0-37.0); MEAN PLATELET VOLUME 9.4 fl (9.6-12.3); RED BLOOD COUNT 3.26 10*6/uL (4.10-5.10); RED CELL DISTRI WIDTH 13.4 % (0-14.5); WHITE BLOOD COUNT 6.9 10*3/uL (4.8-10.8)
[2020-08-19 10:01] LABS: ALBUMIN 3.2 gm/dl (3.1-4.5); CREATININE 1.29 mg/dL (0.55-1.02); POTASSIUM 4.1 mmol/L (3.5-5.1); TOTAL PROTEIN 7.1 gm/dL (6.4-8.2)
== END | disposition home or self-care (01) ==
LOC: LAB 09:14
PROVIDERS: ATTEND Nurse Practitioner Family
DX: E11.9 Type 2 diabetes mellitus without complications (principal); R53.83 Other fatigue; E55.9 Vitamin D deficiency, unspecified; E78.00 Pure hypercholesterolemia, unspecified; Z79.899 Other long term (current) drug therapy

== ENCOUNTER → 2020-08-26 | Outpatient (CLI) | payer MEDICARE, OTHER | END | disposition home or self-care (01) | LOC: RAD 13:42 | PROVIDERS: ATTEND Family Medicine | DX: M17.0 Bilateral primary osteoarthritis of knee (principal); M21.162 Varus deformity, not elsewhere classified, left knee; M21.161 Varus deformity, not elsewhere classified, right knee; I70.203 Unspecified atherosclerosis of native arteries of extremities, bilateral legs ==

== ENCOUNTER → 2020-09-01 | Outpatient (CLI) | payer MEDICARE, OTHER ==
[2020-09-01 08:18] LABS: FREE T4 0.91 ng/dl (0.76-1.46); POTASSIUM 3.6 mmol/L (3.5-5.1)
[2020-09-01 08:23] LABS: THYROID STIM HORMONE (HS) 4.04 uIU/ml (0.358-4.75)
[2020-09-02 04:06] LABS: FOLLICLE STIMULATING HORMONE 25.5 mIU/mL (.); LUTEINIZING HORMONE 9.8 mIU/mL (.)
[2020-09-03 02:06] LABS: HUMAN GROWTH HORMONE 0.1 ng/mL (0.0-10.0)
[2020-09-05 19:06] LABS: TESTOSTERONE FREE, (DIRECT) 1.3 pg/mL (0.0-4.2)
== END | disposition home or self-care (01) ==
LOC: LAB 07:19
PROVIDERS: ATTEND Neurological Surgery
DX: D35.2 Benign neoplasm of pituitary gland (principal); E11.9 Type 2 diabetes mellitus without complications

== ENCOUNTER 2020-09-13 19:13 | Emergency (ER) | payer MEDICARE, OTHER ==
[~2020-09-13] VITALS: Wt 90.3 kg
[2020-09-13 19:30] VITALS: BP 170/63
== END 2020-09-13 21:00 | disposition left against medical advice (07) ==
LOC: ED 19:13
DX: R00.0 Tachycardia, unspecified (principal); Z53.21 Procedure and treatment not carried out due to patient leaving prior to being seen by health care provider

== ENCOUNTER → 2020-11-29 | Outpatient (CLI) | payer MEDICARE, OTHER ==
[2020-11-29 10:35] LABS: ALBUMIN 3.9 gm/dl (3.1-4.5); CREATININE 1.43 mg/dL (0.55-1.02); POTASSIUM 4.5 mmol/L (3.5-5.1); TOTAL PROTEIN 7.5 gm/dL (6.4-8.2)
== END | disposition home or self-care (01) ==
LOC: LAB 09:35
PROVIDERS: ATTEND Family Medicine
DX: E78.5 Hyperlipidemia, unspecified (principal); I10 Essential (primary) hypertension; E11.9 Type 2 diabetes mellitus without complications

== ENCOUNTER → 2021-02-28 | Outpatient (CLI) | payer MEDICARE, OTHER ==
[2021-02-28 09:57] LABS: BASO % 0.6 % (0.0-1.0); EOS # 0.2 10*3/uL (0.0-0.4); EOS % 2.3 % (1.0-4.0); HEMATOCRIT 30.7 % (37.0-47.0); LYMPH % 30.7 % (27.0-41.0); MEAN CELL VOLUME 91.1 fl (81.0-99.0); MEAN CORPUSCULAR HGB 28.8 pg (27.0-31.0); MEAN CORPUSCULAR HGB CONC 31.6 g/dl (33.0-37.0); MONO # 0.5 10*3/uL (0.1-1.0); MONO % 8.1 % (3.0-9.0); NEUT # 3.8 10*3/uL (2.3-7.9); NEUT % 57.8 % (47.0-73.0); PLATELET COUNT AUTOMATED 198 10*3/uL (130-400); RED BLOOD COUNT 3.37 10*6/uL (4.10-5.10); RED CELL DISTRI WIDTH 13.5 % (0-14.5); WHITE BLOOD COUNT 6.6 10*3/uL (4.8-10.8)
[2021-02-28 10:13] LABS: ALBUMIN 3.4 gm/dl (3.1-4.5); CREATININE 1.19 mg/dL (0.55-1.02); POTASSIUM 3.8 mmol/L (3.5-5.1)
[2021-02-28 10:43] LABS: PTH INTACT 107.4 pg/mL (18.5-88.0)
[2021-02-28 10:44] LABS: VITAMIN D, 25-HYDROXY 48.2 ng/mL (30-100)
[2021-02-28 13:14] LABS: BILIRUBIN Negative (Negative); BLOOD Negative (Negative); CLARITY Cloudy (Clear); COLOR Yellow (Yellow); GLUCOSE Negative (Negative); KETONE Negative (Negative); LEUKO ESTERASE 3+ (Negative); NITRITE Positive (Negative); PH 5.5 (4.5-8.0); SPECIFIC GRAVITY 1.015 (1.001-1.030); UROBILINOGEN 0.2 E.U./dl (0.0-1.0)
[2021-02-28 13:19] LABS: URINE CREATININE RANDOM 72.3 mg/dL
[2021-02-28 13:28] LABS: BACTERIA 4+; EPITHELIAL CELLS 16-20; WBC 51-100 wbc/hpf (0-5)
== END | disposition home or self-care (01) ==
LOC: LAB 09:19
PROVIDERS: ATTEND Internal Medicine Nephrology
DX: N17.9 Acute kidney failure, unspecified (principal); N25.81 Secondary hyperparathyroidism of renal origin; Z79.899 Other long term (current) drug therapy

== ENCOUNTER → 2021-03-09 | Outpatient (CLI) | payer MEDICARE, OTHER ==
[2021-03-09 10:02] LABS: HEMATOCRIT 31.2 % (37.0-47.0); MEAN CELL VOLUME 90.4 fl (81.0-99.0); MEAN CORPUSCULAR HGB CONC 32.1 g/dl (33.0-37.0); MEAN PLATELET VOLUME 9.7 fl (9.6-12.3); RED BLOOD COUNT 3.45 10*6/uL (4.10-5.10); RED CELL DISTRI WIDTH 13.3 % (0-14.5)
[2021-03-09 10:23] LABS: ALBUMIN 3.3 gm/dl (3.1-4.5); CREATININE 1.44 mg/dL (0.55-1.02); POTASSIUM 4.2 mmol/L (3.5-5.1); TOTAL PROTEIN 7.1 gm/dL (6.4-8.2)
== END | disposition home or self-care (01) ==
LOC: LAB 09:44
PROVIDERS: ATTEND Family Medicine
DX: E11.9 Type 2 diabetes mellitus without complications (principal); E78.00 Pure hypercholesterolemia, unspecified; I10 Essential (primary) hypertension

== ENCOUNTER 2021-04-02 03:37 | Emergency (ER) | payer MEDICARE, OTHER ==
[~2021-04-02] VITALS: Ht 162.5 cm; Wt 72.6 kg
[2021-04-02 03:57] LABS: BASO # 0.1 10*3/uL (0.0-0.1); BASO % 0.6 % (0.0-1.0); EOS # 0.1 10*3/uL (0.0-0.4); EOS % 1.1 % (1.0-4.0); HEMATOCRIT 33.3 % (37.0-47.0); MEAN CELL VOLUME 89.8 fl (81.0-99.0); MEAN CORPUSCULAR HGB 29.1 pg (27.0-31.0); MEAN CORPUSCULAR HGB CONC 32.4 g/dl (33.0-37.0); MEAN PLATELET VOLUME 10.3 fl (9.6-12.3); MONO # 0.8 10*3/uL (0.1-1.0); MONO % 6.9 % (3.0-9.0); NEUT # 8.2 10*3/uL (2.3-7.9); PLATELET COUNT AUTOMATED 208 10*3/uL (130-400); RED BLOOD COUNT 3.71 10*6/uL (4.10-5.10); RED CELL DISTRI WIDTH 12.8 % (0-14.5); WHITE BLOOD COUNT 11.2 10*3/uL (4.8-10.8)
[2021-04-02 03:58] VITALS: BP 146/62
[2021-04-02 04:11] LABS: ACT PARTIAL THROMBO TIME 26.7 SECONDS (20.0-32.1)
[2021-04-02 04:15] LABS: ALBUMIN 3.6 gm/dl (3.1-4.5); CREATININE 1.45 mg/dL (0.55-1.02); POTASSIUM 4.2 mmol/L (3.5-5.1); TOTAL PROTEIN 7.4 gm/dL (6.4-8.2)
== END 2021-04-02 06:34 | disposition home or self-care (01) ==
LOC: ED 03:37
PROVIDERS: Internal Medicine
DX: N17.9 Acute kidney failure, unspecified (principal); R07.89 Other chest pain; D64.9 Anemia, unspecified; E11.65 Type 2 diabetes mellitus with hyperglycemia; I10 Essential (primary) hypertension; I25.10 Atherosclerotic heart disease of native coronary artery without angina pectoris; J44.9 Chronic obstructive pulmonary disease, unspecified; E78.00 Pure hypercholesterolemia, unspecified; K21.9 Gastro-esophageal reflux disease without esophagitis; Z91.040 Latex allergy status; Z79.899 Other long term (current) drug therapy; Z79.82 Long term (current) use of aspirin; Z90.89 Acquired absence of other organs; Z90.710 Acquired absence of both cervix and uterus; Z98.890 Other specified postprocedural states

== ENCOUNTER 2021-06-05 15:53 | Emergency (ER) | payer MEDICARE, OTHER ==
[~2021-06-05] VITALS: Ht 154.9 cm; Wt 90.7 kg
[2021-06-05 16:14] VITALS: BP 145/47
== END 2021-06-05 18:46 | disposition home or self-care (01) ==
LOC: ED 15:53
DX: S39.92XA Unspecified injury of lower back, initial encounter (principal); K21.9 Gastro-esophageal reflux disease without esophagitis; I12.9 Hypertensive chronic kidney disease with stage 1 through stage 4 chronic kidney disease, or unspecified chronic kidney disease; E11.22 Type 2 diabetes mellitus with diabetic chronic kidney disease; N18.30 Chronic kidney disease, stage 3 unspecified; Z91.040 Latex allergy status; Z79.899 Other long term (current) drug therapy; Z79.82 Long term (current) use of aspirin; Z90.49 Acquired absence of other specified parts of digestive tract; Z98.890 Other specified postprocedural states; Z90.710 Acquired absence of both cervix and uterus; W18.39XA Other fall on same level, initial encounter; Y93.89 Activity, other specified; Y92.89 Other specified places as the place of occurrence of the external cause; Y99.8 Other external cause status

== ENCOUNTER → 2021-06-05 | Outpatient (CLI) | payer MEDICARE, OTHER ==
[2021-06-05 10:17] LABS: HEMATOCRIT 30.7 % (37.0-47.0); MEAN CELL VOLUME 90.8 fl (81.0-99.0); MEAN CORPUSCULAR HGB 29.6 pg (27.0-31.0); MEAN CORPUSCULAR HGB CONC 32.6 g/dl (33.0-37.0); MEAN PLATELET VOLUME 9.6 fl (9.6-12.3); RED BLOOD COUNT 3.38 10*6/uL (4.10-5.10); RED CELL DISTRI WIDTH 13.1 % (0-14.5); WHITE BLOOD COUNT 6.5 10*3/uL (4.8-10.8)
[2021-06-05 10:34] LABS: POTASSIUM 4.2 mmol/L (3.5-5.1)
[2021-06-05 10:44] LABS: CREATININE 1.52 mg/dL (0.55-1.02)
== END | disposition home or self-care (01) ==
LOC: LAB 09:59
PROVIDERS: ATTEND Family Medicine
DX: I12.9 Hypertensive chronic kidney disease with stage 1 through stage 4 chronic kidney disease, or unspecified chronic kidney disease (principal); N18.30 Chronic kidney disease, stage 3 unspecified; E74.9 Disorder of carbohydrate metabolism, unspecified; E78.00 Pure hypercholesterolemia, unspecified; Z79.899 Other long term (current) drug therapy

== ENCOUNTER → 2021-09-08 | Outpatient (CLI) | payer MEDICARE, OTHER ==
[2021-09-08 12:46] LABS: BASO # 0.1 10*3/uL (0.0-0.1); BASO % 0.7 % (0.0-1.0); EOS # 0.1 10*3/uL (0.0-0.4); HEMATOCRIT 32.4 % (37.0-47.0); LYMPH # 2.1 10*3/uL (1.3-4.4); LYMPH % 29.6 % (27.0-41.0); MEAN CELL VOLUME 89.3 fl (81.0-99.0); MEAN CORPUSCULAR HGB 28.9 pg (27.0-31.0); MEAN CORPUSCULAR HGB CONC 32.4 g/dl (33.0-37.0); MEAN PLATELET VOLUME 9.9 fl (9.6-12.3); MONO # 0.6 10*3/uL (0.1-1.0); MONO % 8.3 % (3.0-9.0); NEUT # 4.1 10*3/uL (2.3-7.9); NEUT % 59.1 % (47.0-73.0); PLATELET COUNT AUTOMATED 192 10*3/uL (130-400); RED BLOOD COUNT 3.63 10*6/uL (4.10-5.10); RED CELL DISTRI WIDTH 13.1 % (0-14.5)
[2021-09-08 12:48] LABS: BILIRUBIN Negative (Negative); BLOOD Negative (Negative); CLARITY Clear (Clear); COLOR Yellow (Yellow); GLUCOSE Negative (Negative); KETONE Negative (Negative); LEUKO ESTERASE 1+ (Negative); NITRITE Negative (Negative); UROBILINOGEN 0.2 E.U./dl (0.0-1.0)
[2021-09-08 12:56] LABS: URINE CREATININE RANDOM 21.8 mg/dL
[2021-09-08 13:02] LABS: BACTERIA 3+
[2021-09-08 13:04] LABS: CREATININE 1.45 mg/dL (0.55-1.02)
[2021-09-08 13:04] LABS: WBC 16-20 wbc/hpf (0-5)
== END | disposition home or self-care (01) ==
LOC: LAB 12:22
PROVIDERS: ATTEND Internal Medicine Nephrology
DX: N17.9 Acute kidney failure, unspecified (principal); Z79.899 Other long term (current) drug therapy

== ENCOUNTER 2021-09-19 16:19 | Emergency (ER) | payer MEDICARE, OTHER ==
[~2021-09-19] VITALS: Ht 154.9 cm; Wt 88.9 kg
[2021-09-19 16:44] VITALS: BP 147/74
== END 2021-09-19 18:45 | disposition home or self-care (01) ==
LOC: ED 16:19
DX: S61.412A Laceration without foreign body of left hand, initial encounter (principal); Z90.49 Acquired absence of other specified parts of digestive tract; Z90.710 Acquired absence of both cervix and uterus; Z98.890 Other specified postprocedural states; Z79.899 Other long term (current) drug therapy; Z79.82 Long term (current) use of aspirin; W26.0XXA Contact with knife, initial encounter; Y93.89 Activity, other specified; Y92.89 Other specified places as the place of occurrence of the external cause; Y99.8 Other external cause status

== ENCOUNTER → 2021-10-05 | Outpatient (CLI) | payer MEDICARE, OTHER ==
[2021-10-05 09:12] LABS: BASO # 0.1 10*3/uL (0.0-0.1); EOS # 0.2 10*3/uL (0.0-0.4); LYMPH # 2.2 10*3/uL (1.3-4.4); LYMPH % 35.2 % (27.0-41.0); MEAN CELL VOLUME 90.3 fl (81.0-99.0); MEAN CORPUSCULAR HGB CONC 32.1 g/dl (33.0-37.0); MEAN PLATELET VOLUME 9.7 fl (9.6-12.3); MONO # 0.5 10*3/uL (0.1-1.0); MONO % 8.2 % (3.0-9.0); NEUT # 3.3 10*3/uL (2.3-7.9); NEUT % 52.1 % (47.0-73.0); PLATELET COUNT AUTOMATED 180 10*3/uL (130-400); RED BLOOD COUNT 3.21 10*6/uL (4.10-5.10); RED CELL DISTRI WIDTH 13.6 % (0-14.5); WHITE BLOOD COUNT 6.2 10*3/uL (4.8-10.8)
[2021-10-05 09:32] LABS: CREATININE 1.55 mg/dL (0.55-1.02); POTASSIUM 4.3 mmol/L (3.5-5.1); TOTAL PROTEIN 6.9 gm/dL (6.4-8.2)
== END | disposition home or self-care (01) ==
LOC: LAB 08:47
PROVIDERS: ATTEND Family Medicine
DX: E11.9 Type 2 diabetes mellitus without complications (principal); I10 Essential (primary) hypertension; E78.00 Pure hypercholesterolemia, unspecified; M19.90 Unspecified osteoarthritis, unspecified site

== ENCOUNTER → 2022-01-23 | Outpatient (CLI) | payer MEDICARE, OTHER ==
[2022-01-23 10:51] LABS: CREATININE 1.46 mg/dL (0.55-1.02); POTASSIUM 4.1 mmol/L (3.5-5.1); TOTAL PROTEIN 7.1 gm/dL (6.4-8.2)
== END ==
LOC: LAB 10:10
PROVIDERS: ATTEND Family Medicine
DX: E78.00 Pure hypercholesterolemia, unspecified (principal); I10 Essential (primary) hypertension

== ENCOUNTER → 2022-02-14 | Outpatient (CLI) | payer MEDICARE, OTHER ==
[2022-02-14 15:08] LABS: BASO # 0.1 10*3/uL (0.0-0.1); BASO % 0.9 % (0.0-1.0); EOS # 0.1 10*3/uL (0.0-0.4); HEMATOCRIT 30.9 % (37.0-47.0); LYMPH # 1.6 10*3/uL (1.3-4.4); LYMPH % 24.1 % (27.0-41.0); MEAN CORPUSCULAR HGB 29.2 pg (27.0-31.0); MEAN CORPUSCULAR HGB CONC 31.7 g/dl (33.0-37.0); MONO # 0.5 10*3/uL (0.1-1.0); MONO % 6.8 % (3.0-9.0); NEUT # 4.3 10*3/uL (2.3-7.9); NEUT % 65.6 % (47.0-73.0); PLATELET COUNT AUTOMATED 203 10*3/uL (130-400); RED BLOOD COUNT 3.36 10*6/uL (4.10-5.10); RED CELL DISTRI WIDTH 13.6 % (0-14.5); WHITE BLOOD COUNT 6.6 10*3/uL (4.8-10.8)
[2022-02-14 15:29] LABS: BILIRUBIN Negative (Negative); BLOOD Negative (Negative); CLARITY Clear (Clear); COLOR Yellow (Yellow); GLUCOSE Negative (Negative); KETONE Negative (Negative); LEUKO ESTERASE Trace (Negative); NITRITE Negative (Negative); UROBILINOGEN 0.2 E.U./dl (0.0-1.0)
[2022-02-14 15:31] LABS: POTASSIUM 4.1 mmol/L (3.4-5.1)
[2022-02-14 15:37] LABS: CREATININE 1.43 mg/dL (0.55-1.02)
[2022-02-14 15:42] LABS: VITAMIN D, 25-HYDROXY 32.3 ng/mL (30-100)
[2022-02-14 18:11] LABS: BACTERIA TRACE; RBC 0-2 rbc/hpf (0-2)
== END | disposition home or self-care (01) ==
LOC: LAB 14:24
PROVIDERS: ATTEND Internal Medicine Nephrology
DX: N17.9 Acute kidney failure, unspecified (principal); N25.81 Secondary hyperparathyroidism of renal origin; Z79.899 Other long term (current) drug therapy

== ENCOUNTER 2022-03-25 18:03 | Emergency (ER) | payer MEDICARE, OTHER ==
[~2022-03-25] VITALS: Ht 152.4 cm; Wt 90.7 kg
[2022-03-25 18:10] VITALS: BP 179/73
[2022-03-25 18:25] LABS: BASO # 0.1 10*3/uL (0.0-0.1); BASO % 0.7 % (0.0-1.0); EOS # 0.3 10*3/uL (0.0-0.4); EOS % 3.5 % (1.0-4.0); HEMATOCRIT 29.6 % (37.0-47.0); LYMPH # 1.9 10*3/uL (1.3-4.4); LYMPH % 24.2 % (27.0-41.0); MEAN CELL VOLUME 89.4 fl (81.0-99.0); MEAN CORPUSCULAR HGB CONC 32.4 g/dl (33.0-37.0); MEAN PLATELET VOLUME 9.7 fl (9.6-12.3); MONO # 0.6 10*3/uL (0.1-1.0); MONO % 8.1 % (3.0-9.0); NEUT # 4.8 10*3/uL (2.3-7.9); NEUT % 63.1 % (47.0-73.0); PLATELET COUNT AUTOMATED 203 10*3/uL (130-400); RED BLOOD COUNT 3.31 10*6/uL (4.10-5.10); RED CELL DISTRI WIDTH 13.6 % (0-14.5); WHITE BLOOD COUNT 7.6 10*3/uL (4.8-10.8)
[2022-03-25 18:44] LABS: POTASSIUM 4.3 mmol/L (3.4-5.1); TOTAL PROTEIN 7.4 gm/dL (6.0-8.0)
== END 2022-03-25 20:09 | disposition home or self-care (01) ==
LOC: ED 18:03
PROVIDERS: Emergency Medicine
DX: R07.89 Other chest pain (principal); Z91.040 Latex allergy status; Z88.8 Allergy status to other drugs, medicaments and biological substances; Z90.49 Acquired absence of other specified parts of digestive tract; Z90.710 Acquired absence of both cervix and uterus; Z98.42 Cataract extraction status, left eye; Z98.41 Cataract extraction status, right eye; Z98.890 Other specified postprocedural states; R06.02 Shortness of breath; D64.9 Anemia, unspecified; I10 Essential (primary) hypertension; J44.9 Chronic obstructive pulmonary disease, unspecified; K21.9 Gastro-esophageal reflux disease without esophagitis; I25.10 Atherosclerotic heart disease of native coronary artery without angina pectoris

== ENCOUNTER → 2022-04-13 | Outpatient (CLI) | payer MEDICARE, OTHER ==
[~2022-04-13] MED LIST changes: +PRESERVISION A1 EAC7 PO
== END | disposition home or self-care (01) ==
LOC: CARD 00:53
PROVIDERS: ATTEND Internal Medicine Cardiovascular Disease
DX: I44.0 Atrioventricular block, first degree (principal); I49.1 Atrial premature depolarization; I10 Essential (primary) hypertension; R07.2 Precordial pain

== ENCOUNTER → 2022-06-12 | Outpatient (CLI) | payer MEDICARE, OTHER ==
[2022-06-12 10:37] LABS: POTASSIUM 4.3 mmol/L (3.4-5.1); TOTAL PROTEIN 6.8 gm/dL (6.0-8.0)
== END | disposition home or self-care (01) ==
LOC: LAB 09:54
PROVIDERS: ATTEND Family Medicine
DX: I10 Essential (primary) hypertension (principal); E11.9 Type 2 diabetes mellitus without complications; E78.00 Pure hypercholesterolemia, unspecified

== ENCOUNTER 2022-07-11 13:07 | Emergency (ER) | payer MEDICARE, OTHER ==
[~2022-07-11] VITALS: Ht 152.4 cm; Wt 90.7 kg
[2022-07-11 13:14] VITALS: BP 147/45
== END 2022-07-11 14:52 | disposition home or self-care (01) ==
LOC: ED 13:07
DX: S30.0XXA Contusion of lower back and pelvis, initial encounter (principal); I10 Essential (primary) hypertension; E11.9 Type 2 diabetes mellitus without complications; I25.10 Atherosclerotic heart disease of native coronary artery without angina pectoris; J44.9 Chronic obstructive pulmonary disease, unspecified; K21.9 Gastro-esophageal reflux disease without esophagitis; Z91.040 Latex allergy status; Z88.8 Allergy status to other drugs, medicaments and biological substances; Z90.49 Acquired absence of other specified parts of digestive tract; Z90.710 Acquired absence of both cervix and uterus; Z98.42 Cataract extraction status, left eye; Z98.41 Cataract extraction status, right eye; Z98.890 Other specified postprocedural states; W19.XXXA Unspecified fall, initial encounter; Y93.89 Activity, other specified; Y92.89 Other specified places as the place of occurrence of the external cause; Y99.8 Other external cause status

== ENCOUNTER 2022-07-15 18:51 | Emergency (ER) | payer MEDICARE, OTHER ==
[~2022-07-15] VITALS: Ht 152.4 cm; Wt 90.7 kg
[2022-07-15 19:10] LABS: BASO # 0.1 10*3/uL (0.0-0.1); BASO % 0.8 % (0.0-1.0); EOS # 0.2 10*3/uL (0.0-0.4); EOS % 2.5 % (1.0-4.0); HEMATOCRIT 29.7 % (37.0-47.0); LYMPH # 1.9 10*3/uL (1.3-4.4); LYMPH % 28.9 % (27.0-41.0); MEAN CELL VOLUME 90.8 fl (81.0-99.0); MEAN CORPUSCULAR HGB 29.4 pg (27.0-31.0); MEAN CORPUSCULAR HGB CONC 32.3 g/dl (33.0-37.0); MEAN PLATELET VOLUME 9.6 fl (9.6-12.3); MONO # 0.5 10*3/uL (0.1-1.0); MONO % 7.3 % (3.0-9.0); NEUT # 3.9 10*3/uL (2.3-7.9); PLATELET COUNT AUTOMATED 161 10*3/uL (130-400); RED BLOOD COUNT 3.27 10*6/uL (4.10-5.10); RED CELL DISTRI WIDTH 13.4 % (0-14.5); WHITE BLOOD COUNT 6.4 10*3/uL (4.8-10.8)
[2022-07-15 19:30] LABS: POTASSIUM 4.5 mmol/L (3.4-5.1)
[2022-07-15 20:59] VITALS: BP 163/67
== END 2022-07-15 21:46 | disposition home or self-care (01) ==
LOC: ED 18:51
PROVIDERS: Internal Medicine
DX: R06.00 Dyspnea, unspecified (principal); N17.9 Acute kidney failure, unspecified; D64.9 Anemia, unspecified; M79.642 Pain in left hand; M79.641 Pain in right hand; E11.22 Type 2 diabetes mellitus with diabetic chronic kidney disease; I12.9 Hypertensive chronic kidney disease with stage 1 through stage 4 chronic kidney disease, or unspecified chronic kidney disease; I25.10 Atherosclerotic heart disease of native coronary artery without angina pectoris; J44.9 Chronic obstructive pulmonary disease, unspecified; K21.9 Gastro-esophageal reflux disease without esophagitis; Z91.040 Latex allergy status; Z88.8 Allergy status to other drugs, medicaments and biological substances; Z90.710 Acquired absence of both cervix and uterus; Z90.49 Acquired absence of other specified parts of digestive tract; Z98.42 Cataract extraction status, left eye; Z98.41 Cataract extraction status, right eye; Z98.890 Other specified postprocedural states

== ENCOUNTER → 2022-08-27 | Outpatient (CLI) | payer MEDICARE, OTHER ==
[2022-08-27 10:11] LABS: BASO % 0.6 % (0.0-1.0); EOS # 0.2 10*3/uL (0.0-0.4); EOS % 2.5 % (1.0-4.0); HEMATOCRIT 31.7 % (37.0-47.0); LYMPH # 2.6 10*3/uL (1.3-4.4); LYMPH % 37.6 % (27.0-41.0); MEAN CELL VOLUME 92.4 fl (81.0-99.0); MEAN CORPUSCULAR HGB 29.2 pg (27.0-31.0); MEAN CORPUSCULAR HGB CONC 31.5 g/dl (33.0-37.0); MEAN PLATELET VOLUME 9.9 fl (9.6-12.3); MONO # 0.6 10*3/uL (0.1-1.0); MONO % 8.1 % (3.0-9.0); NEUT # 3.4 10*3/uL (2.3-7.9); NEUT % 50.8 % (47.0-73.0); PLATELET COUNT AUTOMATED 171 10*3/uL (130-400); RED BLOOD COUNT 3.43 10*6/uL (4.10-5.10); RED CELL DISTRI WIDTH 13.3 % (0-14.5); WHITE BLOOD COUNT 6.8 10*3/uL (4.8-10.8)
[2022-08-27 10:47] LABS: POTASSIUM 4.3 mmol/L (3.4-5.1); TOTAL PROTEIN 6.9 gm/dL (6.0-8.0)
[2022-08-27 10:48] LABS: POTASSIUM 4.3 mmol/L (3.4-5.1)
[2022-08-27 13:43] LABS: BILIRUBIN Negative (Negative); BLOOD Negative (Negative); CLARITY Clear (Clear); COLOR Yellow (Yellow); GLUCOSE Negative (Negative); KETONE Negative (Negative); LEUKO ESTERASE 1+ (Negative); NITRITE Positive (Negative); SPECIFIC GRAVITY 1.015 (1.001-1.030); UROBILINOGEN 0.2 E.U./dl (0.0-1.0)
[2022-08-27 14:01] LABS: BACTERIA 3+; EPITHELIAL CELLS TNTC
== END ==
LOC: LAB 09:36
PROVIDERS: Family Medicine; ATTEND Internal Medicine Nephrology
DX: I12.9 Hypertensive chronic kidney disease with stage 1 through stage 4 chronic kidney disease, or unspecified chronic kidney disease (principal); E11.22 Type 2 diabetes mellitus with diabetic chronic kidney disease; N18.30 Chronic kidney disease, stage 3 unspecified; E78.00 Pure hypercholesterolemia, unspecified; N17.9 Acute kidney failure, unspecified; N25.81 Secondary hyperparathyroidism of renal origin; Z79.899 Other long term (current) drug therapy

== ENCOUNTER → 2022-12-06 | Outpatient (CLI) | payer MEDICARE, OTHER ==
[2022-12-06 10:12] LABS: HEMATOCRIT 31.5 % (37.0-47.0); MEAN CORPUSCULAR HGB 30.1 pg (27.0-31.0); MEAN CORPUSCULAR HGB CONC 32.1 g/dl (33.0-37.0); MEAN PLATELET VOLUME 9.8 fl (9.6-12.3); RED BLOOD COUNT 3.35 10*6/uL (4.10-5.10); WHITE BLOOD COUNT 6.2 10*3/uL (4.8-10.8)
[2022-12-06 10:52] LABS: POTASSIUM 3.9 mmol/L (3.4-5.1); TOTAL PROTEIN 6.8 gm/dL (6.0-8.0)
[2022-12-06 10:55] LABS: VITAMIN D, 25-HYDROXY 41.8 ng/mL (30-100)
== END | disposition home or self-care (01) ==
LOC: LAB 09:50
PROVIDERS: ATTEND Family Medicine
DX: E11.9 Type 2 diabetes mellitus without complications (principal); E55.9 Vitamin D deficiency, unspecified; I10 Essential (primary) hypertension; E78.00 Pure hypercholesterolemia, unspecified; K21.9 Gastro-esophageal reflux disease without esophagitis

== ENCOUNTER 2022-12-19 19:59 | Emergency (ER) | payer MEDICARE, OTHER ==
[~2022-12-19] VITALS: Ht 154.9 cm; Wt 92.6 kg
[2022-12-19 20:20] LABS: BASO % 0.6 % (0.0-1.0); EOS # 0.1 10*3/uL (0.0-0.4); EOS % 1.6 % (1.0-4.0); HEMATOCRIT 30.7 % (37.0-47.0); LYMPH % 28.7 % (27.0-41.0); MEAN CELL VOLUME 92.2 fl (81.0-99.0); MEAN CORPUSCULAR HGB CONC 32.6 g/dl (33.0-37.0); MEAN PLATELET VOLUME 10.1 fl (9.6-12.3); MONO # 0.6 10*3/uL (0.1-1.0); MONO % 8.4 % (3.0-9.0); NEUT # 4.3 10*3/uL (2.3-7.9); NEUT % 60.3 % (47.0-73.0); PLATELET COUNT AUTOMATED 167 10*3/uL (130-400); RED BLOOD COUNT 3.33 10*6/uL (4.10-5.10)
[2022-12-19 20:31] LABS: ACT PARTIAL THROMBO TIME 27.9 SECONDS (20.0-32.1)
[2022-12-19 20:47] LABS: POTASSIUM 4.7 mmol/L (3.4-5.1)
[2022-12-19 22:33] VITALS: BP 118/46
== END 2022-12-19 23:00 | disposition home or self-care (01) ==
LOC: ED 19:59
PROVIDERS: Internal Medicine
DX: K21.9 Gastro-esophageal reflux disease without esophagitis (principal); R07.89 Other chest pain; N18.30 Chronic kidney disease, stage 3 unspecified; E11.22 Type 2 diabetes mellitus with diabetic chronic kidney disease; I12.9 Hypertensive chronic kidney disease with stage 1 through stage 4 chronic kidney disease, or unspecified chronic kidney disease; D64.9 Anemia, unspecified; E11.65 Type 2 diabetes mellitus with hyperglycemia; I25.10 Atherosclerotic heart disease of native coronary artery without angina pectoris; J44.9 Chronic obstructive pulmonary disease, unspecified; E78.00 Pure hypercholesterolemia, unspecified; Z90.49 Acquired absence of other specified parts of digestive tract; Z91.040 Latex allergy status; Z88.8 Allergy status to other drugs, medicaments and biological substances; Z90.710 Acquired absence of both cervix and uterus; Z95.5 Presence of coronary angioplasty implant and graft; Z98.890 Other specified postprocedural states

== ENCOUNTER 2023-01-06 08:26 | Emergency (ER) | payer MEDICARE, OTHER ==
[~2023-01-06] VITALS: Wt 89.8 kg
[2023-01-06 08:47] LABS: BASO % 0.2 % (0.0-1.0); EOS # 0.2 10*3/uL (0.0-0.4); EOS % 2.6 % (1.0-4.0); HEMATOCRIT 25.9 % (37.0-47.0); MEAN CELL VOLUME 92.5 fl (81.0-99.0); MEAN CORPUSCULAR HGB CONC 32.4 g/dl (33.0-37.0); MEAN PLATELET VOLUME 9.6 fl (9.6-12.3); MONO # 0.6 10*3/uL (0.1-1.0); MONO % 9.8 % (3.0-9.0); NEUT # 4.6 10*3/uL (2.3-7.9); NEUT % 70.9 % (47.0-73.0); PLATELET COUNT AUTOMATED 161 10*3/uL (130-400); RED CELL DISTRI WIDTH 12.8 % (0-14.5); WHITE BLOOD COUNT 6.4 10*3/uL (4.8-10.8)
[2023-01-06 09:15] LABS: POTASSIUM 3.8 mmol/L (3.4-5.1); TOTAL PROTEIN 6.3 gm/dL (6.0-8.0)
[2023-01-06 10:00] VITALS: BP 108/36
== END 2023-01-06 10:10 | disposition short-term general hospital (02) ==
LOC: ED 08:26
PROVIDERS: Emergency Medicine
DX: I60.9 Nontraumatic subarachnoid hemorrhage, unspecified (principal); N17.9 Acute kidney failure, unspecified; D64.9 Anemia, unspecified; U07.1 COVID-19; R79.89 Other specified abnormal findings of blood chemistry; R50.9 Fever, unspecified; J18.9 Pneumonia, unspecified organism; I10 Essential (primary) hypertension; E11.9 Type 2 diabetes mellitus without complications; I25.10 Atherosclerotic heart disease of native coronary artery without angina pectoris; J44.9 Chronic obstructive pulmonary disease, unspecified; K21.9 Gastro-esophageal reflux disease without esophagitis; Z91.040 Latex allergy status; Z88.8 Allergy status to other drugs, medicaments and biological substances; Z90.49 Acquired absence of other specified parts of digestive tract; Z90.710 Acquired absence of both cervix and uterus; Z95.5 Presence of coronary angioplasty implant and graft; Z98.42 Cataract extraction status, left eye; Z98.41 Cataract extraction status, right eye; Z98.890 Other specified postprocedural states

== ENCOUNTER 2023-02-12 20:37 | Emergency (ER) | payer MEDICARE, OTHER ==
[~2023-02-12] VITALS: Ht 154.9 cm; Wt 86.2 kg
[2023-02-12 21:13] VITALS: BP 160/78
[2023-02-12 23:16] LABS: BILIRUBIN Negative (Negative); BLOOD Negative (Negative); CLARITY Clear (Clear); COLOR Yellow (Yellow); GLUCOSE Negative (Negative); KETONE Negative (Negative); LEUKO ESTERASE Trace (Negative); NITRITE Negative (Negative); PH 5.5 (4.5-8.0); UROBILINOGEN 0.2 E.U./dl (0.0-1.0)
[2023-02-12 23:40] LABS: BASO % 0.7 % (0.0-1.0); EOS # 0.2 10*3/uL (0.0-0.4); EOS % 3.8 % (1.0-4.0); HEMATOCRIT 29.1 % (37.0-47.0); LYMPH # 2.1 10*3/uL (1.3-4.4); LYMPH % 34.4 % (27.0-41.0); MEAN CELL VOLUME 90.9 fl (81.0-99.0); MEAN CORPUSCULAR HGB 30.3 pg (27.0-31.0); MEAN CORPUSCULAR HGB CONC 33.3 g/dl (33.0-37.0); MEAN PLATELET VOLUME 9.1 fl (9.6-12.3); MONO # 0.5 10*3/uL (0.1-1.0); MONO % 8.4 % (3.0-9.0); NEUT # 3.2 10*3/uL (2.3-7.9); NEUT % 52.4 % (47.0-73.0); PLATELET COUNT AUTOMATED 243 10*3/uL (130-400); RED CELL DISTRI WIDTH 14.8 % (0-14.5); WHITE BLOOD COUNT 6.1 10*3/uL (4.8-10.8)
[2023-02-12 23:52] LABS: BACTERIA 3+; EPITHELIAL CELLS 16-20; RBC 0-2 rbc/hpf (0-2)
[2023-02-12 23:57] LABS: POTASSIUM 4.6 mmol/L (3.4-5.1); TOTAL PROTEIN 6.9 gm/dL (6.0-8.0)
[2023-02-13] MEDS ORDERED: OMNICEF300 MG PO (02:27)
== END 2023-02-13 02:59 | disposition home or self-care (01) ==
LOC: ED 20:37
PROVIDERS: Family Medicine
DX: K59.00 Constipation, unspecified (principal); N39.0 Urinary tract infection, site not specified; I10 Essential (primary) hypertension; E11.9 Type 2 diabetes mellitus without complications; I25.10 Atherosclerotic heart disease of native coronary artery without angina pectoris; J44.9 Chronic obstructive pulmonary disease, unspecified; K21.9 Gastro-esophageal reflux disease without esophagitis; Z88.8 Allergy status to other drugs, medicaments and biological substances; Z91.040 Latex allergy status; Z90.49 Acquired absence of other specified parts of digestive tract; Z90.710 Acquired absence of both cervix and uterus; Z95.5 Presence of coronary angioplasty implant and graft; Z98.890 Other specified postprocedural states

== ENCOUNTER → 2023-09-17 | Outpatient (CLI) | payer MEDICARE, OTHER ==
[~2023-09-17] MED LIST changes: +OMNICEF300 MG PO
[2023-09-17 13:58] LABS: BASO # 0.1 10*3/uL (0.0-0.1); BASO % 0.8 % (0.0-1.0); EOS # 0.2 10*3/uL (0.0-0.4); EOS % 2.5 % (1.0-4.0); HEMATOCRIT 28.2 % (37.0-47.0); LYMPH # 2.5 10*3/uL (1.3-4.4); LYMPH % 34.7 % (27.0-41.0); MEAN CELL VOLUME 94.9 fl (81.0-99.0); MEAN CORPUSCULAR HGB CONC 33.7 g/dl (33.0-37.0); MEAN PLATELET VOLUME 9.6 fl (9.6-12.3); MONO # 0.6 10*3/uL (0.1-1.0); MONO % 7.7 % (3.0-9.0); NEUT # 3.8 10*3/uL (2.3-7.9); NEUT % 53.7 % (47.0-73.0); PLATELET COUNT AUTOMATED 187 10*3/uL (130-400); RED BLOOD COUNT 2.97 10*6/uL (4.10-5.10); RED CELL DISTRI WIDTH 13.5 % (0-14.5); WHITE BLOOD COUNT 7.2 10*3/uL (4.8-10.8)
[2023-09-17 14:08] LABS: BILIRUBIN Negative (Negative); BLOOD Negative (Negative); CLARITY Clear (Clear); COLOR Yellow (Yellow); GLUCOSE Negative (Negative); KETONE Negative (Negative); LEUKO ESTERASE 1+ (Negative); NITRITE Negative (Negative); UROBILINOGEN 0.2 E.U./dl (0.0-1.0)
[2023-09-17 14:35] LABS: BACTERIA TRACE; RBC 0-2 rbc/hpf (0-2)
[2023-09-17 14:53] LABS: TOTAL PROTEIN 6.9 gm/dL (6.0-8.0)
== END | disposition home or self-care (01) ==
LOC: LAB 13:20 → CT 14:00
PROVIDERS: ATTEND Urology
DX: K57.30 Diverticulosis of large intestine without perforation or abscess without bleeding (principal); N26.1 Atrophy of kidney (terminal); N39.0 Urinary tract infection, site not specified

== ENCOUNTER 2024-03-21 09:51 | Emergency (ER) | payer MEDICARE, OTHER ==
[~2024-03-21] VITALS: Ht 152.4 cm; Wt 78.5 kg
[2024-03-21] MEDS ORDERED: FUROSEMIDE20 M1 PO (10:04)
[2024-03-21] MEDS ORDERED: Acetaminophen/Oxycodone 5 MG/325 MG TABLET PO ONE (10:10)
[2024-03-21 12:50] VITALS: BP 111/42
== END 2024-03-21 12:59 | disposition short-term general hospital (02) ==
LOC: ED 09:51
DX: S01.01XA Laceration without foreign body of scalp, initial encounter (principal); S06.6X0A Traumatic subarachnoid hemorrhage without loss of consciousness, initial encounter; E78.5 Hyperlipidemia, unspecified; E11.22 Type 2 diabetes mellitus with diabetic chronic kidney disease; I12.9 Hypertensive chronic kidney disease with stage 1 through stage 4 chronic kidney disease, or unspecified chronic kidney disease; N18.9 Chronic kidney disease, unspecified; I25.10 Atherosclerotic heart disease of native coronary artery without angina pectoris; J44.9 Chronic obstructive pulmonary disease, unspecified; E78.00 Pure hypercholesterolemia, unspecified; Z91.048 Other nonmedicinal substance allergy status; Z91.040 Latex allergy status; Z95.5 Presence of coronary angioplasty implant and graft; Z90.710 Acquired absence of both cervix and uterus; Z90.49 Acquired absence of other specified parts of digestive tract; Z98.890 Other specified postprocedural states; W17.89XA Other fall from one level to another, initial encounter; Y93.01 Activity, walking, marching and hiking; Y92.003 Bedroom of unspecified non-institutional (private) residence as the place of occurrence of the external cause; Y99.8 Other external cause status

== ENCOUNTER 2024-07-23 13:29 | Emergency (ER) | payer MEDICARE, OTHER ==
[~2024-07-23] VITALS: Ht 154.9 cm; Wt 84.4 kg
[~2024-07-23 13:29] MED LIST changes: -AMARYL4 MG PO; +Carafate1 GM PO; +ESOMEPRAZOLE MA40 M1 PO; +FUROSEMIDE20 M1 PO; +Glimepiride1 MG PO; +SIMVASTATIN10 MG PO; +Synthroid,Levo25 MCG PO
[2024-07-23 13:50] VITALS: BP 141/44
[2024-07-23] MEDS ORDERED: Tdap Vaccine 0.5 ML SYR (Adult Vaccine) IM ONE (14:45)
== END 2024-07-23 16:35 | disposition home or self-care (01) ==
LOC: ED 13:29
DX: S01.01XA Laceration without foreign body of scalp, initial encounter (principal); Z91.048 Other nonmedicinal substance allergy status; Z91.040 Latex allergy status; Z79.899 Other long term (current) drug therapy; Z98.890 Other specified postprocedural states; Z90.49 Acquired absence of other specified parts of digestive tract; Z95.5 Presence of coronary angioplasty implant and graft; Z90.710 Acquired absence of both cervix and uterus; W18.31XA Fall on same level due to stepping on an object, initial encounter; Y93.89 Activity, other specified; Y92.89 Other specified places as the place of occurrence of the external cause; Y99.8 Other external cause status

== ENCOUNTER 2024-08-01 12:21 | Emergency (ER) | payer MEDICARE, OTHER ==
[~2024-08-01] VITALS: Ht 152.4 cm; Wt 81.2 kg
[2024-08-01 13:05] VITALS: BP 124/37
[2024-08-01] MEDS ORDERED: Bacitracin Zinc 14 GM TUBE T ONE (13:15)
== END 2024-08-01 13:25 | disposition home or self-care (01) ==
LOC: ED 12:21
DX: S01.01XD Laceration without foreign body of scalp, subsequent encounter (principal); Z48.01 Encounter for change or removal of surgical wound dressing; Z79.899 Other long term (current) drug therapy; Z90.49 Acquired absence of other specified parts of digestive tract; Z90.710 Acquired absence of both cervix and uterus; Z98.890 Other specified postprocedural states; W45.8XXD Other foreign body or object entering through skin, subsequent encounter